=== PATIENT | male | born 1990 | race Caucasian/White ===

== ENCOUNTER 2023-11-08 15:15 | Emergency (ER) | payer OTHER ==
[2023-11-08 16:36] VITALS: BP 117/59; PULSE 58; RESP 18; TEMP 98; BMI 22.2
[2023-11-08] MEDS ORDERED: DICLOFENAC SODIUM 25 MG TABLET.DR PO ONE (16:51)
[2023-11-08] MEDS ORDERED: ACETAMINOPHEN 325 MG TABLET (FP) ONE (17:19)
[2023-11-08] MEDS ORDERED: LIDOCAINE 4% PATCH TP ONE (17:19)
[2023-11-08] MEDS: LIDOCAINE 4% PATCH TP ONE (17:25)
[2023-11-08] MEDS: ACETAMINOPHEN 500 MG TABLET (FP) PO ONE (17:25)
[2023-11-08] MEDS ORDERED: METHOCARBAMOL 500 MG TABLET ONE (17:41)
[2023-11-08] MEDS ORDERED: KETOROLAC TROMETHAMINE 30 MG/1 ML VIAL ONE (17:41)
[2023-11-08] MEDS: KETOROLAC TROMETHAMINE 30 MG/1 ML VIAL IM ONE (17:52)
[2023-11-08] MEDS: METHOCARBAMOL 500 MG TABLET PO ONE (18:37)
[2023-11-08] MEDS ORDERED: LIDOCAINE PATCH REMOVAL MC SCH (22:00)
== END 2023-11-08 19:09 | disposition home or self-care (01) ==
LOC: JER 15:15
PROC: 3E0233Z Introduction of Anti-inflammatory into Muscle, Percutaneous Approach (ICD-10-PCS; principal; 2023-11-08)
DX: M54.50 Low back pain, unspecified (principal); M79.604 Pain in right leg; M79.10 Myalgia, unspecified site
CPT/HCPCS: 73564-TC-RT-FY; 99284-25